=== PATIENT | male | born 1955 | race Caucasian/White ===

== ENCOUNTER 2016-11-26 22:35 | Emergency (ER) | payer SELFPAY ==
[2016-11-27 00:08] VITALS: BMI 30.4
[2016-11-27 00:25] VITALS: BP 140/74; PULSE 89; RESP 18; TEMP 97.5; O2SAT 97
--- NOTE | 2016-11-27 00:29 | ED PDOC ---
Arrival/HPI - General Chief Complaint: Male Genitourinary Time Seen by Provider: 11/27/16 00:08 Historian: Patient - History of Present Illness Narrative History of Present Illness (Text): 11/27/16 00:22 David Trammell is a 61 year old male who presents to the emergency department complaining of urinary retention/difficulty urination. States that he has experienced these symptoms before due to BPH. States he had minimal urinary output around 6pm today. Complains of suprapubic discomfort which is worse while urination. Denies any fever, chills, headache, dizziness, nausea, vomiting , diarrhea, or any other complaints at this time. Symptom Onset: Gradual Symptom Course: Unchanged Severity Level: Mild Activities at Onset: Light Past Medical History - Provider Review Nursing Documentation Reviewed: Yes - Infectious Disease Hx of Infectious Diseases: None - Genitourinary/Gynecological Hx Prostate Problems: Yes - Psychiatric Hx Substance Use: No - Anesthesia Hx Anesthesia: Yes Hx Anesthesia Reactions: No Hx Malignant Hyperthermia: No Family/Social History - Physician Review Nursing Documentation Reviewed: Yes Family/Social History: No Known Family HX Smoking Status: Never Smoked Hx Alcohol Use: No Hx Substance Use: No Allergies/Home Meds Allergies/Adverse Reactions: Allergies No Known Allergies Allergy (Verified 11/27/16 00:08) Home Medications: Home Meds Medication Instructions Recorded Confirmed Doxazosin [Cardura] 1 tab PO DAILY 11/27/16 11/27/16 Review of Systems - Physician Review All systems were reviewed & negative as marked: Yes - Review of Systems Constitutional: Normal. absent: Fatigue, Fevers Respiratory: Normal. absent: SOB, Cough, Sputum Cardiovascular: Normal. absent: Chest Pain, Palpitations Gastrointestinal: Abdominal Pain (suprapubic pain ). absent: Diarrhea, Nausea, Vomiting Genitourinary Male: Dysuria, Urinary Output Changes (decreased urinary output ) . absent: Hematuria Neurological: Normal. absent: Headache, Dizziness Physical Exam Vital Signs Reviewed: Yes Vital Signs Temp Pulse Resp BP Pulse Ox 11/27/16 00:05 97.5 F L 89 18 140/74 97 Temperature: Afebrile Blood Pressure: Normal Pulse: Regular Respiratory Rate: Normal Appearance: Positive for: Well-Appearing, Non-Toxic, Comfortable Pain Distress: None Mental Status: Positive for: Alert and Oriented X 3 - Systems Exam Head: Present: Atraumatic, Normocephalic Pupils: Present: PERRL Conjunctiva: Present: Normal Mouth: Present: Moist Mucous Membranes Respiratory/Chest: Present: Clear to Auscultation, Good Air Exchange. No: Respiratory Distress, Accessory Muscle Use Cardiovascular: Present: Regular Rate and Rhythm, Normal S1, S2. No: Murmurs Abdomen: Present: Normal Bowel Sounds. No: Tenderness, Distention, Peritoneal Signs Upper Extremity: Present: Normal Inspection. No: Cyanosis, Edema Lower Extremity: Present: Normal Inspection. No: Edema Neurological: Present: GCS=15, CN II-XII Intact, Speech Normal Skin: Present: Warm, Dry, Normal Color. No: Rashes Psychiatric: Present: Alert, Oriented x 3, Normal Insight, Normal Concentration Medical Decision Making ED Course and Treatment: 11/27/16 00:31 Impression: A 61 year old male who presents to the emergency department complaining of urinary retention. Plan: -- Prakash catheter -- Reassess and disposition Progress Notes: 11/27/16 00:50 18 Fr prakash catheter inserted, return of clear, yellow urine. Patient denies any discomfort with initial insertion, denies any pain/discomfort at this time. 11/27/16 02:11 On re-evaluation, patient feels better and is in no acute distress. I have discussed the results and plan with the patient, who expresses understanding. Patient in agreement with plan to be discharged home. Patient is stable for discharge. Patient was instructed to follow up with physician or return if symptoms worsen or new concerning symptoms arise. Re-evaluation Time: 02:11 Reassessment Condition: Re-examined, Improved - Scribe Statement The provider has reviewed the documentation as recorded by the Cece Bowers Provider Attestation: Provider Scribe Attestation: All medical record entries made by the Cece were at my direction and personally dictated by me. I have reviewed the chart and agree that the record accurately reflects my personal performance of the history, physical exam, medical decision making, and the department course for this patient. I have also personally directed, reviewed, and agree with the discharge instructions and disposition. Disposition/Present on Arrival - Present on Arrival Any Indicators Present on Arrival: No History of DVT/PE: No History of Uncontrolled Diabetes: No Urinary Catheter: No History of Decub. Ulcer: No History Surgical Site Infection Following: None - Disposition Have Diagnosis and Disposition been Completed?: Yes Diagnosis: Urinary retention Disposition: HOME/ ROUTINE Disposition Time: 02:12 Condition: GOOD Discharge Instructions (ExitCare): Urinary Retention in Men (ED) Prescriptions: Ciprofloxacin [Cipro] 500 mg PO BID #14 tab Referrals: Laz Osullivan MD [Staff Provider] - Follow up with primary Forms: [email or web address] (Slovak)
== END 2016-11-27 02:15 | disposition home or self-care (01) ==
LOC: ED 22:35
DX: R33.9 Retention of urine, unspecified (principal)